=== PATIENT | female | born 1980 | race Caucasian/White ===

== ENCOUNTER 2021-10-13 18:37 | Emergency (ER) | payer MEDICAID ==
[~2021-10-13] VITALS: Ht 162.6 cm; Wt 94.3 kg
[2021-10-13 18:54] VITALS: BP 156/94
== END 2021-10-13 21:20 | disposition left against medical advice (07) ==
LOC: MED 18:37
DX: R51.9 Headache, unspecified (principal); H92.03 Otalgia, bilateral; Z53.21 Procedure and treatment not carried out due to patient leaving prior to being seen by health care provider

== ENCOUNTER 2022-06-09 17:50 | Emergency (ER) | payer MEDICAID ==
[~2022-06-09] VITALS: Ht 160 cm; Wt 97.2 kg
[2022-06-09 18:03] VITALS: BP 153/97
--- NOTE | 2022-06-09 18:15 | NUR ---
PT AMBULATED TO ER BED 8
--- NOTE | 2022-06-09 18:17 | NUR ---
DR CYR AT BEDSIDE EVALUATING PT
--- NOTE | 2022-06-09 18:27 | NUR ---
42 Y/O FEMALE C/O SYNCOPE AFTER WALKING UPSTAIRS TO HER HOUSE X1.5 HOURS AGO AND A TENDER BUMP ON THE POSTERIOR LEFT SIDE OF HER NECK XTODAY. SLIGHT REDNESS AND TENDERNESS NOTED TO LEFT SIDE OF POSTERIOR NECK. PT DENIES PAIN, DENIES N/V/D, DENIES SOB. PT REPORTS SHE IS UNABLE TO RECALL LOSING CONSCIOUSNESS, BUT THAT HER AUNT FOUND HER ON THE FLOOR. PT REPORTS HISTORY OF SYNCOPE X2 YEARS AGO, AND REPORTS THE EPISODES HAVE BECOME MORE FREQUENT THIS MONTH. AOX4, RESPIRATIONS EVEN AND UNLABORED. NKA HX:GESTATIONAL DIABETIES
--- NOTE | 2022-06-09 18:42 | NUR ---
XRAY AT BEDSIDE
[2022-06-09 18:49] LABS: BASOPHILS # (AUTO) 0.1 K/uL (0.00-0.22); EOSINOPHILS # (AUTO) 0.1 K/uL (0-0.4); EOSINOPHILS % (AUTO) 1.9 % (0.0-4.0); MONOCYTES # (AUTO) 0.6 K/uL (0.8-1.0); NEUTROPHILS # (AUTO) 3.5 K/uL (1.8-7.7)
--- NOTE | 2022-06-09 18:51 | NUR ---
PT AMBULATED TO RESTROOM WITH STEADY GAIT.
[2022-06-09 18:53] LABS: BASOPHILS % (AUTO) 0.7 % (0.0-2.0); HEMATOCRIT 39.2 % (36-48); HEMOGLOBIN 12.1 g/dL (12.0-16.0); LYMPHOCYTES # (AUTO) 3.3 K/uL (2.5-16.5); LYMPHOCYTES % (AUTO) 42.7 % (20.5-51.1); MEAN CORPUSCULAR HEMOGLOBIN 21 pg (27-31); MEAN CORPUSCULAR HGB CONC 31 g/dL (33-37); MONOCYTES % (AUTO) 8.1 % (1.7-9.3); NEUTROPHILS % (AUTO) 46.6 % (42.2-75.2); PLATELET COUNT (AUTO) 274 K/uL (140-450); RED BLOOD CELL COUNT(AUTO) 5.94 MIL/uL (4.20-5.40); RED CELL DISTRIBUTION WIDTH 20.1 % (11.6-13.7); WHITE BLOOD COUNT (AUTO) 7.6 K/uL (4.8-10.8)
[2022-06-09 19:20] LABS: ALBUMIN 3.6 g/dL (3.4-5.0); ANION GAP 14.1 (8-16); ASPARTATE AMINOTRANSFERASE 17 U/L (15-37); CARBON DIOXIDE 23.6 mmol/L (21-32); CHLORIDE 107 mmol/L (98-107); CREATININE 0.8 mg/dL (0.6-1.3); GFR ARICAN-AMERICAN 102 mL/min (>90); GLUCOSE 107 mg/dL (74-106); POTASSIUM 3.7 mmol/L (3.5-5.1); SODIUM SERUM 141 mmol/L (136-145); THYROID STIMULATING HORMONE 2.97 uIU/mL (0.34-3.74); TOTAL BILIRUBIN 0.4 mg/dL (0.0-1.0); UREA NITROGEN, BLOOD 12 mg/dL (7-18)
--- NOTE | 2022-06-09 19:22 | NUR ---
Pt report given to PHUONG BUSH. Transfer of care at this time.
[2022-06-09] MEDS ORDERED: FERR325E14 PO (19:39)
[2022-06-09 20:02] VITALS: BP 125/80
--- NOTE | 2022-06-09 20:02 | NUR ---
Patient discharged with v/s stable. Written and verbal after care instructions given and explained. Patient alert, oriented and verbalized understanding of instructions. Ambulatory with steady gait. All questions addressed prior to discharge. ID band removed. Patient advised to follow up with PMD. Rx of ferrous given. Opportunity to ask questions provided and answered.
--- NOTE | 2022-06-09 20:24 | NUR ---
The patient's care was reviewed and supervised by Elena Correa RN.
== END 2022-06-09 20:22 | disposition home or self-care (01) ==
LOC: MED 17:50
DX: R55 Syncope and collapse (principal); R35.0 Frequency of micturition
CPT/HCPCS: 36415; 71045; 80053; 81002; 81025; 83735; 84443; 84484; 85025; 85379; 93005; 99285

== ENCOUNTER 2022-12-16 17:01 | Emergency (ER) | payer MEDICAID ==
[~2022-12-16] VITALS: Ht 160 cm; Wt 99.6 kg
[~2022-12-16 17:01] MED LIST: FERR325E14 PO
[2022-12-16 17:12] VITALS: BP 158/109
--- NOTE | 2022-12-16 17:16 | NUR ---
PT AMB TO BED 11.
[2022-12-16] MEDS ORDERED: KETOROLAC 15 MG/ML VIAL IM ONE (18:10)
[2022-12-16 18:33] LABS: BASOPHILS # (AUTO) 0.1 K/uL (0.00-0.22); BASOPHILS % (AUTO) 0.7 % (0.0-2.0); EOSINOPHILS # (AUTO) 0.1 K/uL (0-0.4); EOSINOPHILS % (AUTO) 1.6 % (0.0-4.0); HEMOGLOBIN 11.4 g/dL (12.0-16.0); LYMPHOCYTES # (AUTO) 2.6 K/uL (2.5-16.5); LYMPHOCYTES % (AUTO) 30.1 % (20.5-51.1); MEAN CORPUSCULAR HEMOGLOBIN 21 pg (27-31); MEAN CORPUSCULAR HGB CONC 31 g/dL (33-37); MEAN CORPUSCULAR VOLUME 67.2 fL (80-94); MONOCYTES # (AUTO) 0.9 K/uL (0.8-1.0); MONOCYTES % (AUTO) 10.1 % (1.7-9.3); NEUTROPHILS # (AUTO) 4.9 K/uL (1.8-7.7); NEUTROPHILS % (AUTO) 57.5 % (42.2-75.2); PLATELET COUNT (AUTO) 250 K/uL (140-450); RED CELL DISTRIBUTION WIDTH 18.3 % (11.6-13.7); WHITE BLOOD COUNT (AUTO) 8.5 K/uL (4.8-10.8)
[2022-12-16 18:54] LABS: ANION GAP 11.5 (8-16); CARBON DIOXIDE 27.4 mmol/L (21-32); POTASSIUM 3.9 mmol/L (3.5-5.1)
[2022-12-16 19:00] LABS: ALBUMIN 3.2 g/dL (3.4-5.0); TOTAL BILIRUBIN 0.4 mg/dL (0.0-1.0)
[2022-12-16] MEDS ORDERED: cephALEXin 500 MG CAP PO ONE (20:40)
[2022-12-16] MEDS ORDERED: CEPH-588 PO (20:42)
[2022-12-16] MEDS ORDERED: ALBU0.0912 INH (20:49)
[2022-12-16 20:55] VITALS: BP 148/92
== END 2022-12-16 20:55 | disposition home or self-care (01) ==
LOC: MED 17:01
DX: L03.115 Cellulitis of right lower limb (principal); F12.90 Cannabis use, unspecified, uncomplicated; Z98.890 Other specified postprocedural states; Z79.899 Other long term (current) drug therapy
CPT/HCPCS: 36415; 71045; 80053; 81025; 83880; 84484; 85025; 93005; 93971; 99285; Q0092; J1885